=== PATIENT | male | born 1960 | race African-American/Black ===

== ENCOUNTER 2018-09-09 19:54 | Inpatient (IN) | payer OTHER ==
[2018-09-09] MEDS ORDERED: ACETAMINOPHEN 325 MG TABLET (FP) PO ONE (20:04)
--- NOTE | 2018-09-09 20:04 | PDOC ---
Rapid Medical Evaluation Chief Complaint: Respiratory Time Seen by Provider: 09/09/18 19:56 Medical Evaluation: Allergies Allergy/AdvReac Type Severity Reaction Status Date / Time No Known Allergies Allergy Verified 12/21/15 11:56 Vital Signs Temp Pulse Resp BP Pulse Ox 100.5 F H 112 H 18 104/63 98 09/09/18 19:56 09/09/18 19:56 09/09/18 19:56 09/09/18 19:56 09/09/18 19:56 09/09/18 20:02 I have performed a brief in-person evaluation of this patient. The patient presents with a chief complaint of: 5 days h/o body aches,N/V, headache and fever. Denies cough, abd pains, Pertinent physical exam findings: A&O x 3. lungs CTAB I have ordered the following: rapid flu The patient will proceed to the ED for further evaluation. Discharge Disposition - Diagnosis Headache Qualifiers: Headache type: unspecified Headache chronicity pattern: acute headache Intractability: not intractable Qualified Code(s): R51 - Headache Fever Qualifiers: Fever type: unspecified Qualified Code(s): R50.9 - Fever, unspecified - Discharge Dispostion Condition at time of disposition: Stable - Referrals - Patient Instructions - Post Discharge Activity
--- NOTE | 2018-09-09 20:10 | PDOC ---
History of Present Illness - General Chief Complaint: Respiratory Stated Complaint: HEADACE/VOMITING/BAD COLD Time Seen by Provider: 09/09/18 19:56 - History of Present Illness Initial Comments: 09/09/18 21:22 58-year-old male complaining of nausea, vomiting, fever and headache for the last 5 days. "I feel like I have the flu "denies cough, runny nose, abdominal pain, urinary symptoms. Denies neck pain, dizziness. Patient reports that he has dry mouth. Past History - Past Medical History Allergies/Adverse Reactions: Allergies Allergy/AdvReac Type Severity Reaction Status Date / Time No Known Allergies Allergy Verified 12/21/15 11:56 Home Medications: Ambulatory Orders NK [No Known Home Medication] 12/21/15 COPD: No - Immunization History Immunization Up to Date: Yes - Suicide/Smoking/Psychosocial Hx Smoking History: Never smoked Have you smoked in the past 12 months: No Number of Cigarettes Smoked Daily: 2,014 Hx Alcohol Use: No Drug/Substance Use Hx: No Substance Use Type: None Review of Systems - Review of Systems Able to Perform ROS?: Yes Is the patient limited Belarusian proficient: No HEENTM: Yes: Other ABD/GI: Yes: Nausea, Vomiting Neurological: Yes: Headache *Physical Exam - Vital Signs Last Vital Signs Temp Pulse Resp BP Pulse Ox 100.5 F H 112 H 18 104/63 98 09/09/18 19:56 09/09/18 19:56 09/09/18 19:56 09/09/18 19:56 09/09/18 19:56 - Physical Exam General Appearance: Yes: Appropriately Dressed HEENT: positive: Other (thrush to tongue mild pharyngeal erythema) Respiratory/Chest: positive: Lungs Clear, Normal Breath Sounds Cardiovascular: positive: Regular Rhythm, Tachycardia Gastrointestinal/Abdominal: positive: Normal Bowel Sounds, Soft. negative: Tender Musculoskeletal: positive: Normal Inspection Extremity: positive: Normal Capillary Refill, Normal Inspection, Normal Range of Motion Integumentary: positive: Normal Color, Dry, Warm Neurologic: positive: Fully Oriented, Alert, Normal Mood/Affect ED Treatment Course - LABORATORY CBC & Chemistry Diagram: 09/09/18 20:45 09/09/18 20:45 Progress Note - Progress Note Progress Note: A: fever; SIRS P: labs influenza rapid strep IVF reglan benadryl Medical Decision Making - Medical Decision Making 09/09/18 21:48 patient refused HIV testing 09/09/18 21:54 patient signed out to Carolyn NG and José. leukopenia noted. pending labs and chest xray *DC/Admit/Observation/Transfer Diagnosis at time of Disposition: Headache Qualifiers: Headache type: unspecified Headache chronicity pattern: acute headache Intractability: not intractable Qualified Code(s): R51 - Headache Fever Qualifiers: Fever type: unspecified Qualified Code(s): R50.9 - Fever, unspecified - Discharge Dispostion Condition at time of disposition: Stable - Referrals Referrals: Evan Dowling MD [Primary Care Provider] - - Patient Instructions - Post Discharge Activity
[2018-09-09] MEDS ORDERED: ONDANSETRON *ODT* 4 MG TABLET SL ONE (20:12)
[2018-09-09] MEDS ORDERED: ACETAMINOPHEN 325 MG TABLET (FP) ONE (20:22)
[2018-09-09] MEDS ORDERED: ONDANSETRON *ODT* 4 MG TABLET ONE (20:22)
[2018-09-09] MEDS ORDERED: SODIUM CHLORIDE 0.9% 500 ML INFUS.BAG IV ONE (20:40)
[2018-09-09] MEDS ORDERED: METOCLOPRAMIDE HCL INJECTION 10 MG/2 ML VIAL IVPB ONE (20:54)
[2018-09-09] MEDS ORDERED: METOCLOPRAMIDE HCL INJECTION 10 MG/2 ML VIAL ONE (21:21)
[2018-09-09 21:32] LABS: BASO % 0.5 % (0-2.0); EOS % 0.3 % (0-4.5); HEMATOCRIT 42.2 % (35.4-49); HEMOGLOBIN 13.9 GM/dL (11.7-16.9); LYMPH % 16.1 % (8-40); MCH 27.4 pg (25.7-33.7); MCHC 32.9 g/dl (32.0-35.9); MEAN CELL VOLUME 83.2 fl (80-96); MEAN PLT VOLUME 9.3 fl (7.5-11.1); MONO % 4.1 % (3.8-10.2); PLATELET COUNT 102 K/MM3 (134-434); RBC 5.07 M/mm3 (4.00-5.60); RDW 12.6 % (11.9-15.9)
[2018-09-09 21:34] LABS: EPI CELLS 1.9 /HPF (0-5); PH,URINE 5.5 (5.0-8.0); URINE APPEARANCE CLOUDY; URINE BILIRUBIN 1+ (NEGATIVE); URINE CASTS 20 /hpf (0-8); URINE COLOR DK YELLOW; URINE GLUCOSE (UA) NEGATIVE (NEGATIVE); URINE KETONE 1+ (NEGATIVE); URINE LEUK ESTERASE NEGATIVE (NEGATIVE); URINE NITRITE NEGATIVE (NEGATIVE); URINE PROTEIN 2+ (NEGATIVE); URINE RBC 2 /hpf (0-4); URINE WBC 2 /hpf (0-5)
[2018-09-09 21:45] LABS: WHITE BLOOD COUNT 1.9 K/mm3 (4.0-10.0)
[2018-09-09 21:59] LABS: ALBUMIN 3.6 g/dl (3.4-5.0); ALK PHOS 68 U/L (45-117); ANION GAP 10 MMOL/L (8-16); BILIRUBIN,TOTAL 0.5 mg/dL (0.2-1); BLOOD UREA NITROGEN 16 mg/dL (7-18); CALCIUM 8.3 mg/dL (8.5-10.1); CHLORIDE 98 mmol/L (98-107); CO2 25 mmol/L (21-32); CREATININE 1.4 mg/dL (0.55-1.3); GLUCOSE,RANDOM 109 mg/dL (74-106); LIPASE 353 U/L (73-393); POTASSIUM 3.8 mmol/L (3.5-5.1); SGOT/AST 140 U/L (15-37); SGPT/ALT 94 U/L (13-61); SODIUM 133 mmol/L (136-145); TOT PROT 7.2 g/dl (6.4-8.2)
[2018-09-09] MEDS ORDERED: VANCOMYCIN 1 GM in D5W (PRE-DOCKED) 1,000 MG/250 ML IVPB ONE (22:15)
[2018-09-09] MEDS ORDERED: CEFTRIAXONE 2,000 MG in DEXTROSE 5%-WATER - 50 ML IVPB ONE (22:15)
[2018-09-09] MEDS ORDERED: ACYCLOVIR INJECTION 600 MG in DEXTROSE 5%-WATER - 100 ML IVPB ONE (22:15)
[2018-09-09] MEDS ORDERED: DEXAMETHASONE SOD PHOSPHATE 10 MG/1 ML VIAL IVPUSH ONE (22:19)
--- NOTE | 2018-09-09 22:26 | PDOC ---
*Physical Exam - Vital Signs Last Vital Signs Temp Pulse Resp BP Pulse Ox 100.5 F H 112 H 18 104/63 98 09/09/18 19:56 09/09/18 19:56 09/09/18 19:56 09/09/18 19:56 09/09/18 19:56 - Physical Exam General Appearance: Yes: Appropriately Dressed. No: Apparent Distress HEENT: positive: EOMI, BRYANT, Normal Voice, TMs Normal, Thrush Neck: positive: Trachea midline, Supple. negative: Decreased range of motion, Stridor, Lymphadenopathy (R), Lymphadenopathy (L), Rigidity Respiratory/Chest: positive: Lungs Clear, Normal Breath Sounds. negative: Respiratory Distress, Accessory Muscle Use Cardiovascular: positive: Regular Rhythm, Regular Rate. negative: Murmur Neurologic: positive: lyft driver II-XII NML intact, Fully Oriented, Alert, Normal Mood/ Affect ED Treatment Course - LABORATORY CBC & Chemistry Diagram: 09/13/18 06:53 09/13/18 06:53 - ADDITIONAL ORDERS Additional order review: Laboratory Results 09/09/18 09/09/18 09/09/18 21:16 21:16 20:45 Sodium 133 L Potassium 3.8 Chloride 98 Carbon Dioxide 25 Anion Gap 10 BUN 16 Creatinine 1.4 H Creat Clearance w eGFR 52.42 Random Glucose 109 H Lactic Acid 1.0 Calcium 8.3 L Total Bilirubin 0.5 AST 140 H ALT 94 H Alkaline Phosphatase 68 Total Protein 7.2 Albumin 3.6 Lipase 353 Urine Color Dk yellow Urine Appearance Cloudy Urine pH 5.5 Ur Specific [place] 1.030 Urine Protein 2+ H Urine Glucose (UA) Negative Urine Ketones 1+ H Urine Blood 1+ H Urine Nitrite Negative Urine Bilirubin 1+ H Urine Urobilinogen 1.0 Ur Leukocyte Esterase Negative Urine WBC (Auto) 2 Urine RBC (Auto) 2 Urine Casts (Auto) 20 U Pathogenic Cast Auto None seen U Epithel Cells (Auto) 1.9 Urine Bacteria (Auto) 2.0 09/09/18 20:45 RBC 5.07 MCV 83.2 MCHC 32.9 RDW 12.6 MPV 9.3 Neutrophils % 79.0 Lymphocytes % 16.1 Monocytes % 4.1 Eosinophils % 0.3 Basophils % 0.5 - RADIOLOGY Radiology Studies Ordered: Category Date Time Status HEAD CT WITHOUT CONTRAST [CT] Stat CT Scan 09/09/18 22:13 Ordered - Medications Given in the ED: ED Medications Discontinued Medications Generic Name Dose Route Start Last Admin Trade Name Willam PRN Reason Stop Dose Admin Acetaminophen 650 mg 09/09/18 20:04 09/09/18 20:24 Tylenol - PO 09/09/18 20:05 650 mg ONCE ONE Administration Diphenhydramine HCl 25 mg 09/09/18 20:55 09/09/18 21:27 Benadryl Injection - IVPB 09/09/18 20:56 25 mg ONCE ONE Administration Metoclopramide HCl 10 mg 09/09/18 20:54 09/09/18 21:47 Reglan Injection - IVPB 09/09/18 20:55 10 mg ONCE ONE Administration Ondansetron HCl 4 mg 09/09/18 20:12 09/09/18 20:24 Zofran Odt - SL 09/09/18 20:13 4 mg ONCE ONE Administration Sodium Chloride 1,000 ml 09/09/18 20:40 09/09/18 21:26 Normal Saline - IV 09/09/18 20:41 1,000 ml ONCE ONE Administration Progress Note - Progress Note Progress Note: Received signout from nurse practitioner Valdez. Briefly this is a 58-year-old male denies medical history with 5 days of influenza-like illness including weakness, malaise, headaches. Patient reports the headache is been constant has not changed since initial onset. Patient denies any neck pain or sore throat. Laboratory testing is remarkable for WBC of 1900, and platelets of 102,000. Chemistry is notable for creatinine of 1.4 with mildly elevated AST 140 and ALT 94. Upon arrival temperature is 100.5 degrees the heart rate of 112. Medical Decision Making - Medical Decision Making 09/09/18 22:23 A/P: 58-year-old male 5 days of malaise, fatigue, headache and fevers Patient has thrombocytopenia and neutropenia I will get a CAT scan to rule out any potential infectious process or intercranial hemorrhage. This patient has neutropenic fever I will defer lumbar puncture at this time to reduce the risk of seeding. I will treat the patient prophylactically with vancomycin 1 g, ceftriaxone 2 g and acyclovir 600 mg. His physical exam reveals thrush HIV testing, [place] virus testing, lying testing to be completed as complete infectious workup. Patient will have to be admitted to the hospital for continued evaluation of his symptoms. 09/10/18 00:50 Chest x-rays read by me: Angles clear. Prominent left-sided eleonora. Cardiac silhouette is within normal limits. No focal infiltrates or consolidations present. CT of the head as read by imaging lens and frames prescription clerk: Ventricular system is midline and nondilated. The sulcal pattern is normal for the patient's age. There is no bleed, mass, extra-axial fluid collection or mass effect. No skull fracture or skull lesion is identified. Visualized paranasal sinuses and mastoid air cells are clear. Impression: Normal exam. I will contact the Dr. Evan Dowling for admission. 09/10/18 01:07 Case has been discussed with Dr. Dowling accepts patient for inpatient admission for neutropenic fever. Requested placed Dr. Malin as infectious disease specialist. *DC/Admit/Observation/Transfer Diagnosis at time of Disposition: Neutropenic fever - Discharge Dispostion Condition at time of disposition: Stable Decision to Admit order: Yes - Referrals - Patient Instructions - Post Discharge Activity
[2018-09-09 22:43] LABS: PLATELET ESTIMATE DECREASED
[2018-09-09] MEDS ORDERED: DEXAMETHASONE SOD PHOSPHATE 10 MG/1 ML VIAL ONE (22:48)
[2018-09-09] MEDS ORDERED: CEFTRIAXONE 2 GM/100 ML BAG IVPB ONE (22:49)
[2018-09-09] MEDS ORDERED: VANCOMYCIN 1 GRAM (PRE-DOCKED) 1,000 MG/250 ML BAG IVPB ONE (22:49)
[2018-09-10] MEDS: SODIUM CHLORIDE 0.45% 1,000 ML IV SCH ×3 (01:34→22:42)
[2018-09-10] MEDS: NYSTATIN 500,000 UNITS/5 ML SUSPENSION PO SCH ×3 (05:58→18:27)
[2018-09-10] MEDS: ACETAMINOPHEN 325 MG TABLET (FP) PO PRN ×3 (05:59→22:41)
[2018-09-10 09:44] LABS: BASO % 0.3 % (0-2.0); HEMOGLOBIN 12.8 GM/dL (11.7-16.9); LYMPH % 10.8 % (8-40); MCH 26.5 pg (25.7-33.7); MEAN CELL VOLUME 82.8 fl (80-96); MEAN PLT VOLUME 9.1 fl (7.5-11.1); MONO % 4.2 % (3.8-10.2); NEUT % 84.7 % (42.8-82.8); PLATELET COUNT 102 K/MM3 (134-434); RBC 4.83 M/mm3 (4.00-5.60); RDW 12.5 % (11.9-15.9); WHITE BLOOD COUNT 2.3 K/mm3 (4.0-10.0)
[2018-09-10 10:08] LABS: ALBUMIN 2.9 g/dl (3.4-5.0); ALK PHOS 57 U/L (45-117); ANION GAP 9 MMOL/L (8-16); BILIRUBIN,TOTAL 0.2 mg/dL (0.2-1); BLOOD UREA NITROGEN 16 mg/dL (7-18); CHLORIDE 103 mmol/L (98-107); CO2 24 mmol/L (21-32); CREATININE 1.3 mg/dL (0.55-1.3); GLUCOSE,RANDOM 140 mg/dL (74-106); SGOT/AST 101 U/L (15-37); SGPT/ALT 78 U/L (13-61); SODIUM 137 mmol/L (136-145); TOT PROT 6.1 g/dl (6.4-8.2)
--- NOTE | 2018-09-10 10:15 | PN ---
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 +rodent exposure at work no photophobia, no neck stiffness no history of herpes, chlamydia in the past sexually active- females only- last one month ago- no condoms received decadron, acyclovir, vancomycin and ceftriaxone history of MRSA abscess in the past tmax 100.5 exam alert no nuchal rigidity right mobile, nontender, nonfluctuant axillary LN no thrush poor dentition no hsm two papular lesions 2-3 mm left forearm labs notable for leukopenia, thrombocytopenia, elevated LFTs head ct negative cxray normal viral meningitis vs bacterial (less likely)- hiv seroconversion cmv, ebv parvo doubt tick illness- denies exposure to animals, no pets, no outdoor exposures no uri prodrome to suggest enterovirus no diarrhea less likely cryptococcal disease check cpk send serologies send rpr d/w neurology- plan for LP today, will order INR contact/respiratory isolation hold antibiotics for now pending LP
--- NOTE | 2018-09-10 10:27 | EKG ---
Test Reason : Blood Pressure : / mmHG Vent. Rate : 065 BPM Atrial Rate : 065 BPM P-R Int : 144 ms QRS Dur : 080 ms QT Int : 412 ms P-R-T Axes : 061 049 046 degrees QTc Int : 428 ms NORMAL SINUS RHYTHM NORMAL ECG WHEN COMPARED WITH ECG OF 08-APR-1999 05:45, NO SIGNIFICANT CHANGE WAS FOUND Confirmed by MAX ROSSI MD ([id number]) on 09/10/2018 10:26:59 AM Referred By: Confirmed By:MAX ROSSI MD
--- NOTE | 2018-09-10 11:40 | CONS ---
DATE OF CONSULTATION: DATE OF DICTATION: 09/10/2018 REQUESTING PHYSICIAN: Evan Dowling MD HISTORY: This is a 58-year-old man who presented to the emergency room last night with complaints of fever and headache with vomiting for the last 5 days. He reports that he started feeling unwell on Thursday night. On Thursday he started having worsening symptoms. He was taking Tylenol at home for these symptoms. He denied any cough or sore throat. He denied any chest pain or abdominal pain. He has no nuchal rigidity or photophobia. He went to work all week. 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 He reports exposures at work. There are rats in the alley in the back, and there are mice occasionally in the apartment. He has not done any plumbing. He has no cough or shortness of breath. He denies any dysuria or abdominal pain. PAST MEDICAL HISTORY: Really unremarkable. He has a history of an MRSA abscess in his left groin that was in 2013. He has a history once of having had Chlamydia. MEDICATIONS: He does not take any medicines. He has been taking Tylenol p.r.n. since he had the headache. ALLERGIES: He has no known drug allergies. FAMILY HISTORY: Noncontributory. SOCIAL HISTORY: There is no history of any cigarette or substance use. He lives alone. He is sexually active with women only. Last had sex about a month ago. Did not use any protection. He denies a history of herpes. He has no pets. He does not hike. He does not go to the park. He denies any mosquito or tick bites. He has no history of any travel. REVIEW OF SYSTEMS: As per HPI. PHYSICAL EXAMINATION: General: He is awake and alert. Vital Signs: His T-max is 100.5. He is currently afebrile. Temperature 98.9, pulse 60, blood pressure 132/74, respiratory rate 18. HEENT: He describes a bifrontal headache. He is normocephalic. His eyes are anicteric. He has no conjunctivitis. He has poor dentition. He has no thrush. Neck: Supple. He has no cervical adenopathy. Lymphatics: He has 1 mobile axillary node in his right axilla. He has no inguinal adenopathy. Heart: Regular rate and rhythm. He has no murmurs. Lungs: Clear to auscultation. Abdomen: Soft and nontender. Extremities: Without edema or rash. Skin: On his left forearm he has 2 probably 2-mm papular lesions that he had not noted before. DIAGNOSTIC DATA: His labs are notable admission white count 1.9 with an ANC of 1.5. Today it is 2.3 with an ANC of 1.9. He has platelets of 102,000. Chemistries are notable for an elevated AST 101 and ALT 78. Urinalysis is notable for 1+ bilirubin, positive ketones. It is negative for leukocyte esterase. Serologies, his mononucleosis screen is negative, and his HIV antibody and p24 antigen are negative. Influenza screen and group B streptococcus testing are negative. Cultures are pending of his throat and blood. As well, course in the emergency room, he was seen in the emergency room, and he had a head CT that was read as unremarkable. He was given a dose of Decadron, vancomycin, ceftriaxone, and acyclovir, and he was started on IV fluids. I am asked to see him in follow up. In summary, this is an otherwise healthy 58-year-old man with leukopenia, thrombocytopenia, abnormal LFTs, and headache most consistent with a viral meningitis much less likely to be bacterial. He has no tick exposures whatsoever, and this is winter making it even less likely. Differential diagnosis would include HIV seroconversion, CMV, EBV, parvovirus. He has not had no URI prodrome of cold to suggest an enteroviral illness, and he has had no diarrhea. Would check a CPK given the elevated LFTs. Would check HIV PCR, CMV serology, EBV and parvovirus serology. Would send an RPR. I discussed the case with Dr. Vora, who saw the patient briefly. Plan is for LP today. Would maintain contact and respiratory isolation. For now, would observe him off antibiotics until the LP can be done. We will try to obtain LCM serology as well as leptospirosis serology. Further recommendations to follow. ELIOT AUSTIN M.D. [id number]
[2018-09-10 12:11] LABS: INR 1.07 (0.83-1.09); PROTHROMBIN TIME (PATIENT) 12.6 SEC (9.7-13.0)
--- NOTE | 2018-09-10 13:14 | HP ---
Admitting History and Physical - Admission Chief Complaint: 58 y/o pt of mine got lost to f/u 4 yrs. c/o of frontal headacs\es lost wt 5 pounds over 1 wk and feilt warm sinc 3 days ago pmx sig for pre dm low tsn nl wbc ct 4 yrs ago History Source: Patient Limitations to Obtaining History: No Limitations - Past Medical History ENT: Yes: Other (oral ? thrush) - Past Surgical History Past Surgical History: Yes: None - Smoking History Smoking history: Never smoked Have you smoked in the past 12 months: No Aproximately how many cigarettes per day: 2,014 - Alcohol/Substance Use Hx Alcohol Use: No History of Substance Use: reports: None - Social History Usual Living Arrangement: Yes: Alone History of Recent Travel: No Home Medications - Allergies Allergies/Adverse Reactions: Allergies Allergy/AdvReac Type Severity Reaction Status Date / Time No Known Allergies Allergy Verified 12/21/15 11:56 - Home Medications Home Medications: Ambulatory Orders NK [No Known Home Medication] 12/21/15 Family Disease History - Family Disease History Family History: Unremarkable Review of Systems - Review of Systems Constitutional: reports: Unintentional Wgt. Loss, Other (headace) HENT: reports: Other (oral thrush) Physical Examination Vital Signs: Vital Signs Temperature 98.9 F 09/10/18 09:19 Pulse Rate 60 09/10/18 09:19 Respiratory Rate 18 09/10/18 09:19 Blood Pressure 132/74 09/10/18 09:19 O2 Sat by Pulse Oximetry (%) 100 09/10/18 09:00 Constitutional: Yes: Well Nourished Eyes: Yes: WNL HENT: Yes: Other (thrusch) Neck: Yes: WNL Cardiovascular: Yes: WNL Respiratory: Yes: WNL Gastrointestinal: Yes: WNL ...Rectal Exam: Yes: Deferred Renal/: Yes: WNL Breast(s): Yes: WNL Musculoskeletal: Yes: WNL Extremities: Yes: WNL Edema: No Peripheral Pulses WNL: Yes Integumentary: Yes: WNL Neurological: Yes: WNL ...Motor Strength: WNL Psychiatric: Yes: WNL Labs: CBC, BMP 09/10/18 09:30 09/10/18 09:30 Problem List - Problems (1) Oral thrush Code(s): B37.0 - CANDIDAL STOMATITIS Assessment/Plan cont tx as is chk tsh chk aic f/u w id neuro
[2018-09-10] MEDS ORDERED: DEXTROSE 5%-WATER 100 ML IVPB ONE ×2 (15:03→21:13)
[2018-09-10] MEDS: CEFTRIAXONE 2 GM in DEXTROSE 5%-WATER 100 ML IVPB SCH ×2 (15:38→22:38)
[2018-09-10] MEDS: VANCOMYCIN 1 GM PREMIX - 1 GM/200 ML BAG IVPB SCH (15:38)
[2018-09-10 16:16] LABS: BF GLUCOSE (CSF ONLY) 70 mg/dL (40-70)
[2018-09-10 16:20] LABS: CSF APPEARANCE CLEAR; CSF COLOR COLORLESS; CSF WBC 0
--- NOTE | 2018-09-10 18:45 | CON.NEURO ---
Consult - History of Present Illness History of Present Illness: 58 yo man with headache and vomiting x 5 days, no prior HX of BROWN 's states fever and chills this past week worst BROWN of life +rodent exposure at work no photophobia, no neck stiffness no history of herpes, chlamydia in the past received decadron, acyclovir, vancomycin and ceftriaxone history of MRSA abscess in the past LP (-) , CT HD (-) - Past Medical History ENT: Yes: Other (oral ? thrush) - Past Surgical History Past Surgical History: Yes: None - Alcohol/Substance Use Hx Alcohol Use: No History of Substance Use: reports: None - Smoking History Smoking history: Never smoked Have you smoked in the past 12 months: No Aproximately how many cigarettes per day: 2,014 - Social History History of Recent Travel: No Home Medications - Allergies Allergies/Adverse Reactions: Allergies Allergy/AdvReac Type Severity Reaction Status Date / Time No Known Allergies Allergy Verified 12/21/15 11:56 - Home Medications Home Medications: Ambulatory Orders NK [No Known Home Medication] 12/21/15 Physical Exam-Neuro Vital Signs: Vital Signs Temperature 100.6 F H 09/10/18 15:15 Pulse Rate 64 09/10/18 15:15 Respiratory Rate 18 09/10/18 15:15 Blood Pressure 126/64 09/10/18 15:15 O2 Sat by Pulse Oximetry (%) 100 09/10/18 09:00 Labs: CBC, BMP 09/10/18 09:30 09/10/18 09:30 INR, PTT INR 1.07 (0.83-1.09) 09/10/18 11:30 - Neuro Exam Level Of Consciousness: Yes: Alert (Awake, alert, no nuchla rigidity , EOMI, no facial, moving exe x 4 ) Imaging - Results Cat Scan: Report Reviewed, Image Reviewed Problem List - Problems (1) Headache Code(s): R51 - HEADACHE Qualifiers: Headache type: unspecified Headache chronicity pattern: acute headache Intractability: not intractable Qualified Code(s): R51 - Headache (2) Neutropenic fever Code(s): D70.9 - NEUTROPENIA, UNSPECIFIED; R50.81 - FEVER PRESENTING WITH CONDITIONS CLASSIFIED ELSEWHERE Assessment/Plan 58 yo man with headache and vomiting x 5 days, no prior HX of BROWN 's states fever and chills this past week worst BROWN of life no photophobia, no neck stiffness no history of herpes, chlamydia in the past received decadron, acyclovir, vancomycin and ceftriaxone history of MRSA abscess in the past LP (-) , CT HD (-) AP : new onset BROWN , setting fever chills and neutropenia ? VIral SX , no HX of migraines no evidence of meningitis or SAH , LP (-) no signs of encephalitis ID Dc ABX check MRI MRA , r/o slim chance dissection DR MARIE
[2018-09-11] MEDS: NYSTATIN 500,000 UNITS/5 ML SUSPENSION PO SCH ×4 (00:50→18:42)
[2018-09-11] MEDS: SODIUM CHLORIDE 0.45% 1,000 ML IV SCH ×2 (01:44→09:36)
[2018-09-11] MEDS ORDERED: PT OWN MED DRAWER 7, Y5N ONE ×3 (02:11→17:19)
[2018-09-11] MEDS: VANCOMYCIN 1 GM PREMIX - 1 GM/200 ML BAG IVPB SCH (02:18)
[2018-09-11] MEDS: ACETAMINOPHEN 325 MG TABLET (FP) PO PRN ×3 (06:11→22:21)
[2018-09-11 07:28] LABS: ANION GAP 7 MMOL/L (8-16); BLOOD UREA NITROGEN 12 mg/dL (7-18); CALCIUM 8.2 mg/dL (8.5-10.1); CHLORIDE 101 mmol/L (98-107); CO2 27 mmol/L (21-32); CREATININE 1.4 mg/dL (0.55-1.3); GLUCOSE,RANDOM 95 mg/dL (74-106); POTASSIUM 4.1 mmol/L (3.5-5.1); SODIUM 136 mmol/L (136-145)
[2018-09-11] MEDS ORDERED: DEXTROSE 5%-WATER 100 ML IVPB ONE (09:18)
[2018-09-11] MEDS: CEFTRIAXONE 2 GM in DEXTROSE 5%-WATER 100 ML IVPB SCH (09:23)
[2018-09-11 10:09] LABS: CMV IgM < 30.0 AU/mL (0.0-29.9)
[2018-09-11 11:45] LABS: BASO % 0.6 % (0-2.0); HEMATOCRIT 37.7 % (35.4-49); HEMOGLOBIN 12.6 GM/dL (11.7-16.9); MCH 27.8 pg (25.7-33.7); MCHC 33.3 g/dl (32.0-35.9); MEAN CELL VOLUME 83.4 fl (80-96); MEAN PLT VOLUME 9.6 fl (7.5-11.1); MONO % 7.5 % (3.8-10.2); NEUT % 69.9 % (42.8-82.8); PLATELET COUNT 95 K/MM3 (134-434); RBC 4.52 M/mm3 (4.00-5.60); RDW 12.5 % (11.9-15.9); WHITE BLOOD COUNT 2.3 K/mm3 (4.0-10.0)
[2018-09-11] MEDS ORDERED: ELETRIPTAN HYDROBROMIDE 40 MG TABLET PO ONE (13:00)
--- NOTE | 2018-09-11 13:04 | PN ---
Progress Note, Physician Chief Complaint: headace n/c weak n/c no other coplaints - Current Medication List Current Medications: Active Medications Acetaminophen (Tylenol -) 650 mg PO Q6H PRN PRN Reason: PAIN OR FEVER Last Admin: 09/11/18 12:04 Dose: 650 mg Sodium Chloride (1/2 Normal Saline) 1,000 mls @ 100 mls/hr IV ASDIR JOAO Last Admin: 09/11/18 09:36 Dose: 100 mls/hr Ceftriaxone Sodium 2 gm/ (Dextrose) 100 mls @ 100 mls/hr IVPB BID JOAO; Protocol Last Admin: 09/11/18 09:23 Dose: 100 mls/hr Nystatin (Nystatin Oral Suspension -) 100,000 units PO Q6HPO JOAO Last Admin: 09/11/18 12:00 Dose: 100,000 units - Objective Vital Signs: Vital Signs Temperature 99.5 F 09/11/18 09:00 Pulse Rate 66 09/11/18 09:00 Respiratory Rate 17 09/11/18 09:00 Blood Pressure 119/64 09/11/18 09:00 O2 Sat by Pulse Oximetry (%) 100 09/10/18 21:00 Constitutional: Yes: No Distress Eyes: Yes: WNL, Other HENT: Yes: WNL Neck: Yes: WNL Cardiovascular: Yes: WNL Respiratory: Yes: WNL Gastrointestinal: Yes: WNL ...Rectal Exam: Yes: Deferred Genitourinary: Yes: WNL Breast(s): Yes: WNL Musculoskeletal: Yes: WNL Extremities: Yes: WNL Edema: No Peripheral Pulses WNL: Yes Integumentary: Yes: WNL Neurological: Yes: WNL ...Motor Strength: WNL Psychiatric: Yes: WNL Labs: CBC, BMP 09/11/18 10:30 09/11/18 05:30 INR, PTT INR 1.07 (0.83-1.09) 09/10/18 11:30 Problem List - Problems (1) Oral thrush Code(s): B37.0 - CANDIDAL STOMATITIS Assessment/Plan relpax prn for headaces chk mra cont tx as is
--- NOTE | 2018-09-11 13:21 | PN ---
Progress Note (short form) - Note Progress Note: 58 yo man with headache and vomiting x 5 days, no prior HX of BROWN 's states fever and chills this past week worst BROWN of life +rodent exposure at work no photophobia, no neck stiffness no history of herpes, chlamydia in the past received decadron, acyclovir, vancomycin and ceftriaxone history of MRSA abscess in the past LP (-) , CT HD (-) FU : BROWN continues bifrontal ESR P MRI P HIV prelim (-) - Past Medical History ENT: Yes: Other (oral ? thrush) - Past Surgical History Past Surgical History: Yes: None - Alcohol/Substance Use Hx Alcohol Use: No History of Substance Use: reports: None - Smoking History Smoking history: Never smoked Have you smoked in the past 12 months: No Aproximately how many cigarettes per day: 2,014 - Social History History of Recent Travel: No Home Medications - Allergies Allergies/Adverse Reactions: Allergies Allergy/AdvReac Type Severity Reaction Status Date / Time No Known Allergies Allergy Verified 12/21/15 11:56 - Home Medications Home Medications: Ambulatory Orders NK [No Known Home Medication] 12/21/15 Physical Exam-Neuro Vital Signs: Vital Signs Temperature 99.5 F 09/11/18 09:00 Pulse Rate 66 09/11/18 09:00 Respiratory Rate 17 09/11/18 09:00 Blood Pressure 119/64 09/11/18 09:00 O2 Sat by Pulse Oximetry (%) 100 09/10/18 21:00 Labs: CBC, BMP 09/10/18 09:30 09/10/18 09:30 INR, PTT INR 1.07 (0.83-1.09) 09/10/18 11:30 - Neuro Exam Level Of Consciousness: Yes: Alert (Awake, alert, no nuchla rigidity , EOMI, no facial, moving exe x 4 ) Imaging - Results Cat Scan: Report Reviewed, Image Reviewed Problem List - Problems (1) Headache Code(s): R51 - HEADACHE Qualifiers: Headache type: unspecified Headache chronicity pattern: acute headache Intractability: not intractable Qualified Code(s): R51 - Headache (2) Neutropenic fever Code(s): D70.9 - NEUTROPENIA, UNSPECIFIED; R50.81 - FEVER PRESENTING WITH CONDITIONS CLASSIFIED ELSEWHERE Assessment/Plan 58 yo man with headache and vomiting x 5 days, no prior HX of BROWN 's states fever and chills this past week worst BROWN of life no photophobia, no neck stiffness no history of herpes, chlamydia in the past received decadron, acyclovir, vancomycin and ceftriaxone history of MRSA abscess in the past LP (-) , CT HD (-) AP : new onset BROWN , setting fever chills and neutropenia ? VIral SX , no HX of migraines no evidence of meningitis or SAH , LP (-) no signs of encephalitis ID Dc ABX check MRI MRA , r/o slim chance dissection , thrombosis DR MARIE Problem List - Problems (1) Headache Code(s): R51 - HEADACHE Qualifiers: Headache type: unspecified Headache chronicity pattern: acute headache Intractability: not intractable Qualified Code(s): R51 - Headache (2) Neutropenic fever Code(s): D70.9 - NEUTROPENIA, UNSPECIFIED; R50.81 - FEVER PRESENTING WITH CONDITIONS CLASSIFIED ELSEWHERE
--- NOTE | 2018-09-11 14:27 | PN ---
Progress Note (short form) - Note Progress Note: doing better lp negative still with headache fevers trending down alert NAD will d/c vancomycin continue rocephin for now f/u cultures and serologies
[2018-09-11 16:12] LABS: PARV B19 IGG 0.7 index (0.0-0.8); PARV B19 IGM 0.1 index (0.0-0.8)
[2018-09-11 17:11] LABS: EPSTEIN BARR ANTIBODY IgM <36.0 U/mL (0.0-35.9)
[2018-09-12] MEDS: SODIUM CHLORIDE 0.45% 1,000 ML IV SCH ×2 (02:26→13:44)
[2018-09-12] MEDS: NYSTATIN 500,000 UNITS/5 ML SUSPENSION PO SCH ×4 (02:27→17:23)
[2018-09-12 07:07] LABS: BASO % 0.4 % (0-2.0); EOS % 0.2 % (0-4.5); HEMATOCRIT 39.2 % (35.4-49); HEMOGLOBIN 12.9 GM/dL (11.7-16.9); LYMPH % 25.8 % (8-40); MCH 26.8 pg (25.7-33.7); MCHC 32.8 g/dl (32.0-35.9); MEAN CELL VOLUME 81.8 fl (80-96); MEAN PLT VOLUME 8.9 fl (7.5-11.1); MONO % 9.2 % (3.8-10.2); NEUT % 64.4 % (42.8-82.8); PLATELET COUNT 101 K/MM3 (134-434); RBC 4.79 M/mm3 (4.00-5.60); RDW 12.6 % (11.9-15.9); WHITE BLOOD COUNT 3.7 K/mm3 (4.0-10.0)
[2018-09-12 07:25] LABS: ANION GAP 5 MMOL/L (8-16); BLOOD UREA NITROGEN 10 mg/dL (7-18); CALCIUM 8.1 mg/dL (8.5-10.1); CHLORIDE 104 mmol/L (98-107); CO2 27 mmol/L (21-32); CREATININE 1.1 mg/dL (0.55-1.3); GLUCOSE,RANDOM 104 mg/dL (74-106); POTASSIUM 3.6 mmol/L (3.5-5.1); SODIUM 136 mmol/L (136-145)
[2018-09-12] MEDS: ACETAMINOPHEN 325 MG TABLET (FP) PO PRN (08:50)
[2018-09-12] MEDS ORDERED: DEXTROSE 5%-WATER - 50 ML IVPB ONE (10:47)
[2018-09-12] MEDS ORDERED: cefTRIAXone SODIUM 1 GM VIAL ONE (10:47)
[2018-09-12] MEDS: CEFTRIAXONE 1 GM in DEXTROSE 5%-WATER - 50 ML IVPB SCH (10:50)
[2018-09-12 12:01] VITALS: BMI 23.6
[2018-09-12] MEDS: ELETRIPTAN HYDROBROMIDE 40 MG TABLET PO PRN (13:44)
--- NOTE | 2018-09-12 14:59 | PN ---
Progress Note (short form) - Note Progress Note: afebrile still with headaches no vomiting Vital Signs Period Temp Pulse Resp BP Sys/Jeronimo Pulse Ox Last 24 Hr 97.8 F-100.1 F 51-80 18-18 105-131/60-73 97-97 cor-rrr lungs clear abd soft,nt ext no edema no rash CBC, BMP 09/12/18 06:00 09/12/18 06:00 Laboratory Tests 09/09/18 09/09/18 09/09/18 21:15 23:00 23:00 RPR Titer Lyme Screen IgG & IgM <0.91 CMV IgG Ab CMV IgM Ab EBV IgG Ab EBV IgM Ab EBV Nuclear Antigen Monoscreen Negative Parvovirus B19 IgG Ab Parvovirus B19 IgM Ab Group A Strep Rapid Negative 09/10/18 09/10/18 09/10/18 11:30 11:30 11:30 RPR Titer Nonreactive Lyme Screen IgG & IgM CMV IgG Ab < 0.60 CMV IgM Ab < 30.0 EBV IgG Ab 321.0 H EBV IgM Ab <36.0 EBV Nuclear Antigen >600.0 H Monoscreen Parvovirus B19 IgG Ab Parvovirus B19 IgM Ab Group A Strep Rapid 09/10/18 11:30 RPR Titer Lyme Screen IgG & IgM CMV IgG Ab CMV IgM Ab EBV IgG Ab EBV IgM Ab EBV Nuclear Antigen Monoscreen Parvovirus B19 IgG Ab 0.7 Parvovirus B19 IgM Ab 0.1 Group A Strep Rapid a/p fever with leukopenia and headache LP negative counts recovering f/u MRI f//u with neurology regaring headaches serologies negative to date repeat lfts in am continue rocephin day #3
[2018-09-13] MEDS: NYSTATIN 500,000 UNITS/5 ML SUSPENSION PO SCH ×4 (00:05→17:10)
[2018-09-13] MEDS: SODIUM CHLORIDE 0.45% 1,000 ML IV SCH ×2 (01:34→17:10)
[2018-09-13] MEDS ORDERED: PT OWN MED DRAWER 7, Y5N ONE (07:27)
[2018-09-13] MEDS: ELETRIPTAN HYDROBROMIDE 40 MG TABLET PO PRN ×2 (07:29→22:08)
[2018-09-13 08:00] LABS: HEMATOCRIT 39.3 % (35.4-49); HEMOGLOBIN 12.7 GM/dL (11.7-16.9); RBC 4.74 M/mm3 (4.00-5.60); WHITE BLOOD COUNT 5.1 K/mm3 (4.0-10.0)
[2018-09-13 08:01] LABS: BASO % 0.5 % (0-2.0); EOS % 0.3 % (0-4.5); LYMPH % 24.9 % (8-40); MCH 26.8 pg (25.7-33.7); MCHC 32.3 g/dl (32.0-35.9); MEAN CELL VOLUME 82.9 fl (80-96); MEAN PLT VOLUME 9.2 fl (7.5-11.1); MONO % 9.1 % (3.8-10.2); NEUT % 65.2 % (42.8-82.8); PLATELET COUNT 141 K/MM3 (134-434); RDW 12.8 % (11.9-15.9)
[2018-09-13 08:32] LABS: ALBUMIN 2.8 g/dl (3.4-5.0); ALK PHOS 60 U/L (45-117); ANION GAP 7 MMOL/L (8-16); BILIRUBIN,TOTAL 0.2 mg/dL (0.2-1); BLOOD UREA NITROGEN 10 mg/dL (7-18); CALCIUM 8.2 mg/dL (8.5-10.1); CHLORIDE 105 mmol/L (98-107); CO2 26 mmol/L (21-32); CREATININE 1.2 mg/dL (0.55-1.3); GLUCOSE,RANDOM 100 mg/dL (74-106); POTASSIUM 3.8 mmol/L (3.5-5.1); SGOT/AST 201 U/L (15-37); SGPT/ALT 173 U/L (13-61); SODIUM 138 mmol/L (136-145); TOT PROT 6.2 g/dl (6.4-8.2)
[2018-09-13] MEDS ORDERED: cefTRIAXone SODIUM 1 GM VIAL ONE (10:51)
[2018-09-13] MEDS ORDERED: DEXTROSE 5%-WATER - 50 ML IVPB ONE (10:52)
[2018-09-13] MEDS: CEFTRIAXONE 1 GM in DEXTROSE 5%-WATER - 50 ML IVPB SCH (10:59)
--- NOTE | 2018-09-13 12:45 | PN ---
Progress Note (short form) - Note Progress Note: Headache better now, but he says that it tends to come back as his pain meds wear off. He says that its been present for a week, with phonophobia, but no photophboia. No neck stiffness. LP, MRI, MRA all negative. Neutropenia better today. Will follow as underlying problem resolves to see if headache resolves as I cannot find an etiology at this point and although it sounds like tension type headache, he has never had this before..
--- NOTE | 2018-09-13 12:48 | PN ---
Progress Note (short form) - Note Progress Note: still some headache no fevers Vital Signs Period Temp Pulse Resp BP Sys/Jeronimo Pulse Ox Last 24 Hr 98.5 F-99.1 F 55-96 17-18 118-142/58-82 99 cor-rrr lungs clear abd soft,nt ext no edema CBC, BMP 09/13/18 06:53 09/13/18 06:53 Microbiology 09/10/18 14:30 Cerebral Spinal Fluid - Lumbar Puncture Gram Stain - Final 09/10/18 14:30 Cerebral Spinal Fluid - Lumbar Puncture CSF Culture - Final 09/09/18 23:00 Blood - Peripheral Venous Blood Culture - Preliminary NO GROWTH OBTAINED AFTER 72 HOURS, INCUBATION TO CONTINUE FOR 2 DAYS. 09/09/18 23:00 Blood - Peripheral Venous Blood Culture - Preliminary NO GROWTH OBTAINED AFTER 72 HOURS, INCUBATION TO CONTINUE FOR 2 DAYS. 09/10/18 09:00 Nares - Mrsa Screen - Left MRSA Screen - Final NO MRSA ISOLATED 09/09/18 21:16 Urine - Urine Clean Catch Urine Culture - Final NO GROWTH OBTAINED 09/09/18 21:49 Throat Throat Culture - Final NO BETA HEMOLYTIC STREPTOCOCCI ISOLATED 09/10/18 14:30 Cerebral Spinal Fluid - Lumbar Puncture Viral Culture - Preliminary 09/10/18 14:30 Cerebral Spinal Fluid - Lumbar Puncture Streptococcus pneumoniae Antigen (M - Final 09/10/18 14:30 Cerebral Spinal Fluid - Lumbar Puncture Cryptococcal Antigen - Preliminary 09/10/18 14:30 Cerebral Spinal Fluid - Lumbar Puncture [facility] Preparation - Preliminary 09/10/18 14:30 Cerebral Spinal Fluid - Lumbar Puncture Fungal Culture - Preliminary a/p fever with [id number] viral syndrome LP negative counts recovering d/c isolation abnl lfts- d/c rocephin, d/c tylenol trend, lever sonogram check cpk repeat lfts in am
--- NOTE | 2018-09-13 14:35 | PN ---
Progress Note, Physician History of Present Illness: comfortable vss - Current Medication List Current Medications: Active Medications Eletriptan (Relpax -) 40 mg PO BID PRN PRN Reason: MIGRAINE Last Admin: 09/13/18 07:29 Dose: 40 mg Sodium Chloride (1/2 Normal Saline) 1,000 mls @ 100 mls/hr IV ASDIR [facility] Last Admin: 09/13/18 01:34 Dose: 100 mls/hr Nystatin (Nystatin Oral Suspension -) 100,000 units PO Q6HPO [facility] Last Admin: 09/13/18 12:26 Dose: 100,000 units - Objective Vital Signs: Vital Signs Temperature 99.1 F 09/13/18 09:00 Pulse Rate 60 09/13/18 09:00 Respiratory Rate 17 09/13/18 09:00 Blood Pressure 130/74 09/13/18 09:00 O2 Sat by Pulse Oximetry (%) 99 09/12/18 21:00 Constitutional: Yes: Well Nourished Eyes: Yes: WNL HENT: Yes: WNL Neck: Yes: WNL Cardiovascular: Yes: WNL Respiratory: Yes: WNL Gastrointestinal: Yes: WNL ...Rectal Exam: Yes: Deferred Genitourinary: Yes: WNL Breast(s): Yes: WNL Musculoskeletal: Yes: WNL Extremities: Yes: WNL Edema: No Integumentary: Yes: WNL Neurological: Yes: WNL Psychiatric: Yes: WNL Labs: CBC, BMP 09/13/18 06:53 09/13/18 06:53 INR, PTT INR 1.07 (0.83-1.09) 09/10/18 11:30 Problem List - Problems (1) Oral thrush Code(s): B37.0 - CANDIDAL STOMATITIS Assessment/Plan agree w viral syndrome ? d/c in am??? yann nath
[2018-09-14] MEDS: NYSTATIN 500,000 UNITS/5 ML SUSPENSION PO SCH ×2 (00:31→05:09)
[2018-09-14] MEDS ORDERED: PT OWN MED DRAWER 7, Y5N ONE (05:00)
[2018-09-14] MEDS: SODIUM CHLORIDE 0.45% 1,000 ML IV SCH (05:10)
[2018-09-14 08:26] VITALS: BP 146/85; PULSE 57; TEMP 98.5
[2018-09-14 08:57] LABS: ALBUMIN 2.8 g/dl (3.4-5.0); BILIRUBIN,DIRECT 0.1 mg/dL (0.0-0.2); BILIRUBIN,TOTAL 0.2 mg/dL (0.2-1); TOT PROT 6.4 g/dl (6.4-8.2)
[2018-09-14] MEDS: ELETRIPTAN HYDROBROMIDE 40 MG TABLET PO PRN (09:38)
--- NOTE | 2018-09-14 11:00 | DS ---
Physical Examination Vital Signs: Vital Signs Temperature 98.5 F 09/14/18 08:25 Pulse Rate 57 L 09/14/18 08:25 Respiratory Rate 17 09/14/18 08:25 Blood Pressure 146/85 09/14/18 08:25 O2 Sat by Pulse Oximetry (%) 94 L 09/13/18 21:00 Constitutional: Yes: Well Nourished Eyes: Yes: WNL HENT: Yes: WNL Neck: Yes: WNL Cardiovascular: Yes: WNL Respiratory: Yes: WNL Gastrointestinal: Yes: WNL ...Rectal Exam: Yes: Deferred Renal/: Yes: WNL Breast(s): Yes: WNL Musculoskeletal: Yes: WNL Extremities: Yes: WNL Edema: No Peripheral Pulses WNL: Yes Integumentary: Yes: WNL Neurological: Yes: WNL ...Motor Strength: WNL Psychiatric: Yes: WNL Labs: CBC, BMP 09/13/18 06:53 09/13/18 06:53 Discharge Summary Reason For Visit: FEBRILE NEUTROPENIA Current Active Problems Headache (Acute) Neutropenic fever (Acute) Oral thrush (Acute) Condition: Stable - Instructions Diet, Activity, Other Instructions: appt w me thursday 12 noon no meds at home relpax prn for headaceds Disposition: HOME - Home Medications Comprehensive Discharge Medication List: Ambulatory Orders NK [No Known Home Medication] 12/21/15
== END 2018-09-14 11:55 | disposition home or self-care (01) | DRG 660 ==
LOC: JERFT 19:54 → JERBED 09-10 01:08 → J7W 09-10 03:36
PROVIDERS: ADMIT Family Medicine; ATTEND Family Medicine
PROC: 009U3ZZ Drainage of Spinal Canal, Percutaneous Approach (ICD-10-PCS; principal; 2018-09-10)
DX: D70.9 Neutropenia, unspecified (principal); B37.0 Candidal stomatitis; D69.6 Thrombocytopenia, unspecified; R50.81 Fever presenting with conditions classified elsewhere; B34.9 Viral infection, unspecified; G44.209 Tension-type headache, unspecified, not intractable
CPT/HCPCS: 36415; 62272; 70450-TC; 70544-TC; 70547-TC; 70551-TC; 71046-TC-FY; 76000-TC-FY; 76098-TC-FY; 76705-TC; 80048; 80053; 80076; 81003; 82550; 82553; 82945; 83036; 83605; 83690; 84157; 84443; 85025; 85610; 86308; 86593; 86618; 86644; 86645; 86664; 86665; 86747; 87040; 87070; 87081; 87086; 87102; 87205; 87210; 87252; 87389; 87529; 87536; 87804; 87880; 87899; 93005; 93010; 99283-25; J1100; Q0162

== ENCOUNTER 2020-01-05 10:16 | Emergency (ER) | payer OTHER ==
--- NOTE | 2020-01-05 10:28 | PDOC ---
History of Present Illness - General Chief Complaint: Abscess Boil Stated Complaint: Testicular Abscesses Time Seen by Provider: 01/05/20 10:27 History Source: Patient Exam Limitations: No Limitations - History of Present Illness Initial Comments: 59M with hx/o prediabetes and recurrent abscesses presents to the ED with testicular "boil". He reports shaving the area 1 week ago, causing an ingrown hair, and also irritated the area by riding his bike and noticed the abscess 5 days ago. He said that there is purulent drainage from the area. Denies fever/chills, testicular pain/swelling, dysuria, hematuria, or penis discharge. PCP: none PMH: See HPI SH: none Allergies: NKDA Soc: neg x3 ROS GENERAL/CONSTITUTIONAL: No fever or chills. HEENT: No change in vision. No ear pain or discharge. No sore throat. CARDIOVASCULAR: No chest pain or shortness of breath RESPIRATORY: No cough, wheezing, or hemoptysis. GASTROINTESTINAL: No nausea, vomiting, diarrhea or constipation. GENITOURINARY: No dysuria, frequency, or change in urination. MUSCULOSKELETAL: No joint or muscle swelling or pain. No neck or back pain. SKIN: No rash NEUROLOGIC: No headache, vertigo, loss of consciousness, or change in strength/sensation. ENDOCRINE: No increased thirst. No abnormal weight change HEMATOLOGIC/LYMPHATIC: No anemia, easy bleeding, or history of blood clots. ALLERGIC/IMMUNOLOGIC: No hives or skin allergy. PE GENERAL: Awake, alert, and fully oriented, in no acute distress HEAD: No signs of trauma, normocephalic, atraumatic EYES: PERRLA, EOMI, sclera anicteric, conjunctiva clear ENT: Auricles normal inspection, hearing grossly normal, nares patent, oropharynx clear without exudates. Moist mucosa NECK: Normal ROM, supple HEART: Regular rate and rhythm, normal S1 and S2, no murmurs, rubs or gallops, peripheral pulses normal and equal bilaterally. LUNGS: No distress, speaks full sentences, clear to auscultation bilaterally ABDOMEN: Soft, nontender. No guarding, no rebound. No masses EXTREMITIES: Normal inspection, Normal range of motion, no edema. No clubbing or cyanosis. : Right scotum abscess with ~2cm induration and no/minimal fluctuation, there' s purulent discharge, no surrounding erythema, no testicular swelling Assessment/Plan: 1. Scrotal Abscess - ultrasound (determine if abscess vs cellulitis), I&D, d/c with Abx 2. +/- cellulitis Past History - Medical History Allergies/Adverse Reactions: Allergies Allergy/AdvReac Type Severity Reaction Status Date / Time No Known Allergies Allergy Verified 01/05/20 10:21 Home Medications: Ambulatory Orders Cephalexin [Keflex] 500 mg PO QID 7 Days #28 capsule 01/05/20 Sulfamethoxazole/Trimethoprim [Bactrim Ds -] 1 tab PO BID #14 tablet 01/05/20 COPD: No - Immunization History Immunization Up to Date: Yes - Psycho-Social/Smoking History Smoking History: Never smoked Have you smoked in the past 12 months: No Number of Cigarettes Smoked Daily: 2,014 - Substance Abuse Hx (Audit-C & DAST Scrn) How often the patient has a drink containing alcohol: Never Score: In Men: 4 or > Positive; In Women: 3 or > Positive: 0 Screen Result (Pos requires Nsg. Audit-10AR): Negative *Physical Exam - Vital Signs Last Vital Signs Temp Pulse Resp BP Pulse Ox 99.1 F 54 L 15 128/74 97 01/05/20 10:22 01/05/20 10:22 01/05/20 10:22 01/05/20 10:22 01/05/20 10:22 Medical Decision Making - Medical Decision Making 59M with hx/o prediabetes and recurrent abscesses presents to the ED with abscess that started 5 days ago. He's not febrile. There is a ~2cm induration with purulent drainage at the right scrotum, without surrounding erythema. Ultrasound demonstrated a pocket with some cobblestone, suggesting abscess > cellulitis. Incision and drainage was done. Local anesthesia was provided with 1% lidocaine. 2 small incisions were made with drainage, leading to reduction of the size of induration. Patient was still in pain following the procedure, and was given 2mg IM morphine, and reported significant improvement. Patient was given 1 dose bactrim and keflex in the ED, and d/c with bactrim and keflex prescription. Patient is safe for discharge and to follow up with PCP. Discharge - Discharge Information Problems reviewed: Yes Clinical Impression/Diagnosis: Abscess Condition: Stable Disposition: HOME - Admission No - Additional Discharge Information Prescriptions: Sulfamethoxazole/Trimethoprim [Bactrim Ds -] 1 tab PO BID #14 tablet Cephalexin [Keflex] 500 mg PO QID 7 Days #28 capsule - Follow up/Referral Referrals: Evan Dowling MD [Primary Care Provider] - - Patient Discharge Instructions Patient Printed Discharge Instructions: DI for Incision and Drainage of a Skin Abscess, DI for Skin Abscess Additional Instructions: You came into the ED for a scrotal abscess. We did an ultrasound that confirmed an abscess. We gave you local anesthesia and did incision and drainage. We gave you pain meds for pain control and antibiotics. You have a prescription for 7 day supply of antibiotics for the abscess. Return to the ED if the antibiotics are unsuccessful, if the abscess grows, or you develop fever. Follow up with your PCP to verify that it has healed. - Post Discharge Activity
[2020-01-05 10:55] VITALS: PULSE 54; TEMP 99.1; BMI 24.2
[2020-01-05] MEDS ORDERED: LIDOCAINE HCL 1%, 10 MG/ML (50 mL VIAL) SQ ONE (11:35)
[2020-01-05] MEDS ORDERED: LIDOCAINE HCL 1%, 10 MG/ML (20ML VIAL) ONE ×2 (11:44→11:55)
[2020-01-05] MEDS ORDERED: SULFAMETHOXAZOLE/TRIMETHOPRIM 800MG/160MG D.S. TABLET PO ONE (12:00)
[2020-01-05] MEDS ORDERED: CEPHALEXIN MONOHYDRATE 500 MG CAPSULE (UD) PO ONE (12:01)
[2020-01-05] MEDS ORDERED: ACETAMINOPHEN 500 MG TABLET (FP) PO ONE (12:08)
[2020-01-05] MEDS ORDERED: IBUPROFEN 400 MG TABLET (FP) PO ONE (12:09)
[2020-01-05] MEDS ORDERED: morphine CARPU-JECT 2 MG/1 ML DISP.SYRIN IM ONE ×2 (12:13→12:29)
[2020-01-05] MEDS ORDERED: ACETAMINOPHEN 325 MG TABLET (FP) ONE (12:20)
[2020-01-05] MEDS ORDERED: CEPHALEXIN MONOHYDRATE 500 MG CAPSULE (UD) ONE (12:20)
[2020-01-05] MEDS ORDERED: SULFAMETHOXAZOLE/TRIMETHOPRIM 800MG/160MG D.S. TABLET ONE (12:21)
[2020-01-05] MEDS ORDERED: MORPHINE SULFATE 2 MG/ML VIAL ONE (12:21)
[2020-01-05 12:46] VITALS: BP 141/83
--- NOTE | 2020-01-05 13:12 | PDOC ---
Documentation entered by Julienne Piedra SCRIBE, acting as scribe for Major Singer MD. Major Singer MD: This documentation has been prepared by the Dorothea bucio Xhesika, SCRIBE, under my direction and personally reviewed by me in its entirety. I confirm that the documentation accurately reflects all work, treatment, procedures, and medical decision making performed by me. Attending Attestation - Resident Resident Name: Jamaal Gaytan - ED Attending Attestation I have performed the following: I have examined & evaluated the patient, The case was reviewed & discussed with the resident, I agree w/resident's findings & plan, Exceptions are as noted - HPI HPI: 01/05/20 10:35 The patient is a 59 year old male with a PMH of recurrent abscess and pre-DM who presents to the ED for abscess boil at scrotal region x5days. The patient states he was using a hair missy, later was riding bike and developed irritation to the area. Pt states he then noticed drainage from the site associated with pain and tenderness. Pt denies any penile drainage, fever, chills, cough, nausea, vomiting, and constipation. Denies dysuria, frequency, urgency and hematuria. Allergy: NKDA Social: Denies alcohol, cigarette or drug use. - Physicial Exam PE: 01/05/20 13:07 Vitals: Triage Vital signs reviewed General Appearance: No acute distress, well nourished well developed, Head: Atraumatic, Abdomen: Soft, non distended, normal bowel sounds, non tender to palpation Genitourinary:Small abscess to right scrotum superficial not deep [id number] ultrasound demonstrates no deep collection Rectal: Exam deferred Extremities: Full range of motion to all extremities, no cyanosis, clubbing, or edema Skin: Warm and dry, no rashes or lesions, no rash, no petechiae Psych: Normal mood, normal affect - Medical Decision Making 01/05/20 13:08 59 years old small abscess to scrotum superficial determined by [id number] ultrasound lanced patient tolerated procedure well Findings, need for follow-up and strict return instructions discussed with patient. Discharge - Discharge Information Problems reviewed: Yes Clinical Impression/Diagnosis: Abscess Condition: Stable Disposition: HOME - Additional Discharge Information Prescriptions: Sulfamethoxazole/Trimethoprim [Bactrim Ds -] 1 tab PO BID #14 tablet Cephalexin [Keflex] 500 mg PO QID 7 Days #28 capsule - Follow up/Referral Referrals: Evan Dowling MD [Primary Care Provider] - - Patient Discharge Instructions Patient Printed Discharge Instructions: DI for Incision and Drainage of a Skin Abscess, DI for Skin Abscess Additional Instructions: You came into the ED for a scrotal abscess. We did an ultrasound that confirmed an abscess. We gave you local anesthesia and did incision and drainage. We gave you pain meds for pain control and antibiotics. You have a prescription for 7 day supply of antibiotics for the abscess. Return to the ED if the antibiotics are unsuccessful, if the abscess grows, or you develop fever. Follow up with your PCP to verify that it has healed. - Post Discharge Activity
== END 2020-01-05 12:50 | disposition home or self-care (01) ==
LOC: JER 10:16
PROC: 3E033NZ Introduction of Analgesics, Hypnotics, Sedatives into Peripheral Vein, Percutaneous Approach (ICD-10-PCS; principal; 2020-01-05)
DX: N45.4 Abscess of epididymis or testis (principal)
CPT/HCPCS: 82962; 99285-25

== ENCOUNTER 2021-06-03 16:59 | Emergency (ER) | payer OTHER ==
[2021-06-03 17:36] VITALS: BP 133/77; PULSE 62; TEMP 98.4; BMI 25.0
== END 2021-06-03 19:04 | disposition home or self-care (01) ==
LOC: JER 16:59
DX: J06.9 Acute upper respiratory infection, unspecified (principal); R05.1 Acute cough; R09.81 Nasal congestion
CPT/HCPCS: 71046-TC-FY; 87804; 99284-25; C9803; U0003; U0005